=== PATIENT | male | born 1970 | race African-American/Black ===

== ENCOUNTER 2020-05-11 10:38 | Emergency (ER) | payer MEDICAID ==
[~2020-05-11] VITALS: Ht 182.9 cm; Wt 81.8 kg
[2020-05-11 11:21] VITALS: Ht 182.9 cm; Wt 81.8 kg
[2020-05-11 12:58] LABS: UDS - AMPHET POSITIVE QUAL (NEGATIVE); UDS - BARB NEGATIVE QUAL (NEGATIVE); UDS - BENZO NEGATIVE QUAL (NEGATIVE); UDS - COCAINE NEGATIVE QUAL (NEGATIVE); UDS - OPIATE NEGATIVE QUAL (NEGATIVE); UDS - PCP NEGATIVE QUAL (NEGATIVE); UDS - THC POSITIVE QUAL (NEGATIVE)
[2020-05-11] MEDS ORDERED: HYDROCORTISONE30 G9 TOPICAL (14:25)
[2020-05-11] MEDS ORDERED: BACTRIM DS TAB1 EAC1 PO (14:25)
[2020-05-11 14:36] VITALS: BP 116/98
== END 2020-05-11 14:37 | disposition home or self-care (01) ==
LOC: D.ER 10:38
PROVIDERS: Family Medicine
DX: L30.9 Dermatitis, unspecified (principal); F22 Delusional disorders; F15.10 Other stimulant abuse, uncomplicated; R21 Rash and other nonspecific skin eruption